=== PATIENT | male | born 1970 | race Caucasian/White ===

== ENCOUNTER 2017-04-08 18:43 | Inpatient (IN) | payer OTHER ==
[~2017-04-08] VITALS: Ht 180.3 cm; Wt 81.6 kg
[2017-04-08] MEDS ORDERED: ASPIRIN 81MG TABLET PO STA (19:15)
[2017-04-08] MEDS ORDERED: NITROGLYCERIN 0.4MG TABLET SL SL PRN (19:15)
[2017-04-08 19:38] LABS: BASOPHILS % 0.8 % (0.0-2.0); EOSINOPHILS % 1.3 % (0.0-5.0); HEMATOCRIT. 43.4 % (42.0-52.0); HEMOGLOBIN. 14.9 g/dL (14.0-18.0); LYMPHOCYTES % 26.2 % (20.0-50.0); MEAN CORPUSCULAR HEMOGLOBIN 29.8 pg (28.0-32.0); MEAN CORPUSCULAR VOLUME 86.6 fL (80.0-94.0); MEAN PLATELET VOLUME 7.8 fl (7.4-10.4); MONOCYTES % 6.8 % (2.0-8.0); NEUTROPHILS % 64.9 % (40.0-76.0); PLATELET 281 x1000/uL (130-400); RED BLOOD CELL COUNT 5.01 mill/uL (4.7-6.1); RED CELL DISTRIBUTION WIDTH 13.2 % (11.6-14.6)
[2017-04-08 19:47] LABS: PARTIAL THROMBOPLASTIN TIME 26.2 sec (23.4-31.0); PROTHROMBIN TIME 10.3 sec (9.4-11.6)
[2017-04-08 19:53] LABS: CARBON DIOXIDE 28 mEq/L (21-32); CHLORIDE 105 mEq/L (98-107); TROPONIN I < 0.02 ng/mL (0.00-0.04)
[2017-04-08] MEDS ORDERED: FUROSEMIDE 40MG/4ML VIAL IVP ONE (20:15)
[2017-04-08 23:00] VITALS: BP 112/75
[2017-04-08] MEDS ORDERED: MORPHINE SULFATE 4 MG/ML CPJ (NOT FOR IM USE) IV PRN (23:45)
[2017-04-08] MEDS ORDERED: NITROGLYCERIN OINT 1GM/INCH UDPKT TD PRN (23:45)
[2017-04-08] MEDS ORDERED: ONDANSETRON HCL 4MG/2ML VIAL IV PRN (23:45)
[2017-04-09] VITALS: BP 112/75
[2017-04-09 00:16] LABS: *AMPHETAMINES SCREEN URINE NEGATIVE (NEGATIVE); *BARBITURATES SCREEN URINE NEGATIVE (NEGATIVE); *BENZODIAZEPINES SCREEN URINE NEGATIVE (NEGATIVE); *COCAINE SCREEN URINE NEGATIVE (NEGATIVE); CANNABINOID URINE SCREEN NEGATIVE (NEGATIVE); METHADONE URINE SCREEN NEGATIVE (NEGATIVE); OPIATES URINE SCREEN NEGATIVE (NEGATIVE); PHENCYCLIDINE URINE SCREEN NEGATIVE (NEGATIVE)
[2017-04-09 04:00] VITALS: BP 114/68
[2017-04-09 12:00] VITALS: BP 121/80
[2017-04-09 17:35] LABS: BASOPHILS % 0.7 % (0.0-2.0); MEAN CORPUSCULAR HEMOGLOBIN 29.6 pg (28.0-32.0); MEAN CORPUSCULAR VOLUME 86.9 fL (80.0-94.0); MEAN PLATELET VOLUME 8.1 fl (7.4-10.4); MONOCYTES % 11.1 % (2.0-8.0); NEUTROPHILS % 48.2 % (40.0-76.0); PLATELET 279 x1000/uL (130-400); RED BLOOD CELL COUNT 5.06 mill/uL (4.7-6.1); RED CELL DISTRIBUTION WIDTH 12.7 % (11.6-14.6)
[2017-04-09 17:42] LABS: CHLORIDE 101 mEq/L (98-107)
[2017-04-09 17:55] LABS: CARBON DIOXIDE 31 mEq/L (21-32)
[2017-04-09 19:56] VITALS: BP 127/80
[2017-04-09 23:46] VITALS: BP 110/63
[2017-04-10 04:00] VITALS: BP 113/71
[2017-04-10 08:00] VITALS: BP 138/81
[2017-04-10] MEDS ORDERED: ASPIRIN 81MG TABLET PO SCH (10:00)
[2017-04-10] MEDS ORDERED: REGADENOSON 0.4 MG/5 ML IV ONE ×2 (10:30→11:32)
[2017-04-10 11:53] LABS: HDL CHOLESTEROL 52 mg/dL (40-59); LDL CHOLESTEROL 109 mg/dL (5-100); T4 FREE 0.85 ng/dL (0.76-1.46)
== END 2017-04-10 14:00 | disposition home or self-care (01) | DRG 313 ==
LOC: ER 18:44 → 8WST 20:45 → ENRESERV 21:15
PROVIDERS: ADMIT Family Medicine; ATTEND Family Medicine
DX: R07.9 Chest pain, unspecified (principal); R73.9 Hyperglycemia, unspecified; Z60.2 Problems related to living alone
CPT/HCPCS: 36415; 71010; 78452; 80048; 80053; 80061; 80305; 83036; 83880; 84439; 84443; 84484; 85025; 85379; 85610; 85730; 93005; 93017; 93306; 93970; 96374; 99285; A9500; J1940; J2785